=== PATIENT | female | born 1970 | race Caucasian/White ===

== ENCOUNTER → 2021-06-24 08:35 | Outpatient (CLI) | payer MEDICAID, SELFPAY ==
[2021-06-24 10:37] LABS: Blood Urea Nitrogen 18 mg/dl (7-17); Estimated Glomerular Filt Rate 76 ml/min (>60); GFR (African American) 92 ML/MIN (>60)
== END ==
PROVIDERS: PCP Nurse Practitioner Family; Visit Provider Specialist
DX: R56.9 Unspecified convulsions (principal)
CPT/HCPCS: 36415; 82565; 84520; 94762; 95816; 95819

== ENCOUNTER → 2021-08-09 12:34 | Outpatient (CLI) | payer MEDICAID, SELFPAY ==
--- NOTE | 2021-08-09 12:34 | MR_ITS ---
PROCEDURE: MR HEAD/BRAIN WO/W CON CLINICAL INDICATION: Seizure COMPARISON: No exams were available for comparison TECHNIQUE: Routine multiplanar multi echo sequences are performed without and with gadolinium enhancement. FINDINGS: No midline shift, mass effect, intracranial hemorrhage, or hydrocephalus is evident. No evidence of acute infarction. The cerebellopontine angles, cerebellum, brainstem and mid brain have an unremarkable appearance. The hippocampal gyri are unremarkable in the temporal horns are symmetric. Small T2 white matter hyperintensity at 2-3 mm noted in the left west radiata possibly due to partial volume averaging artifact nonspecific. The pituitary, optic chiasm, corpus callosum, and craniocervical junction have an unremarkable appearance. No mastoid effusion or sinus air-fluid level. No enhancing lesions evident. IMPRESSION: No acute intracranial findings. Central negative MRI of the brain without and with contrast Single small T2 white matter hyperintensity in the left centrum semiovale and may be due to partial volume averaging artifact. This is nonspecific and of questionable clinical significance. Dictated by: Jesse Blair MD 08/10/2021 09:39 Jesse Blair MD in [place] 08/10/2021 09:39
== END ==
PROVIDERS: PCP Nurse Practitioner Family; Visit Provider Specialist
DX: G40.909 Epilepsy, unspecified, not intractable, without status epilepticus (principal)
CPT/HCPCS: 70553; A9576